=== PATIENT | female | born 1990 | race Hispanic/Latino ===

== ENCOUNTER 2020-12-06 06:21 | Outpatient (CLI) | payer SELFPAY ==
[~2020-12-06] VITALS: Ht 157.5 cm; Wt 95.5 kg
[~2020-12-06 06:21] MED LIST: DOCU-143 PO; FERR-65 PO; IBUP-1773 PO; OXYC1TAB11 PO; PREN-37 PO; PREN1COM PO
== END 2020-12-06 11:40 | disposition home or self-care (01) ==
LOC: PREOP 06:21
PROVIDERS: ATTEND Obstetrics & Gynecology
DX: Z01.818 Encounter for other preprocedural examination (principal)

== ENCOUNTER 2020-12-12 06:55 | Inpatient (IN) | payer OTHER ==
[~2020-12-12] VITALS: Ht 160 cm; Wt 95.9 kg
[2020-12-12] VITALS (12 sets, daily range): BP systolic 122–160; BP diastolic 64–91
[2020-12-12] MEDS: LACTATED RINGERS 1,000 ML IV PRN ×2 (07:25→08:30)
[2020-12-12] MEDS ORDERED: TETANUS,DIPTH,PERTUSS P/F (BOOSTRIX) 0.5 ML VIAL IM SCH (07:30)
[2020-12-12] MEDS ORDERED: ceFAZolin 2 GM IV Premixed 50 ML IV ONE (07:30)
[2020-12-12] MEDS ORDERED: MEASLES,MUMPS,RUBELLA 1 EA INJ SC SCH (07:30)
[2020-12-12] MEDS ORDERED: ONDANSETRON 4 MG/2 ML (SDV) Z0FRAN IVP PRN (07:30)
[2020-12-12 07:34] LABS: BASOPHILS # (AUTO) 0.1 10^3/uL (0.0-0.1); BASOPHILS % (AUTO) 1 % (0-10); EOSINOPHILS # (AUTO) 0.1 10^3/uL (0.0-0.3); EOSINOPHILS % (AUTO) 1 % (0-10); HEMATOCRIT 32 % (35-52); LYMPHOCYTES % (AUTO) 33 % (12-44); MEAN CORPUSCULAR HEMOGLOBIN 30 pg (25-34); MEAN CORPUSCULAR HGB CONC 34 g/dL (32-36); MEAN CORPUSCULAR VOLUME 89 fL (80-99); MEAN PLATELET VOLUME 10.7 fL (9.0-12.2); MONOCYTES # (AUTO) 0.6 10^3/uL (0.0-1.0); MONOCYTES % (AUTO) 9 % (0-12); NEUTROPHILS # (AUTO) 3.5 10^3/uL (1.8-7.8); NEUTROPHILS % (AUTO) 56 % (42-75); PLATELET COUNT 287 10^3/uL (130-400); WHITE BLOOD COUNT 6.3 10^3/uL (4.3-11.0)
--- NOTE | 2020-12-12 07:39 | History & Physical-OB ---
OB - Chief Complaint & HPI Date/Time Date of Admission: Date of Admission: Dec 12, 2020 at 06:55 Date seen by a Provider: Dec 12, 2020 Time Seen by a Provider: 07:35 Chief Complaint/History OB-Reason for Admission/Chief: Section Hx : 3 Hx Para: 2 Expected Date of Delivery: Dec 18, 2020 Gestational Age in Weeks: 39 Gestational Age in Days: 1 Indication for : desires repeat Admission Nurse Assessment Rev: Yes Allergies and Home Medications Allergies Coded Allergies: No Known Drug Allergies (Unverified , 09/28/16) Home Medications Vit/Iron Fumarate/FA 1 Each Tablet, 1 EACH PO DAILY, (Reported) Patient Home Medication List Home Medication List Reviewed: Yes OB - History Hx of Present Care: Yes Ultrasounds: Normal mid trimester US Obstetrical Complications: None Medical Complications: None Patient Past Medical History n/a Immunizations Date of Influenza Vaccine: Jun 27, 2020 OB - Admission Exam Physical Exam HEENT: NCAT Heart: Rhythm Normal Lungs: Clear Abdomen: Gravid Extremities: Normal Reflexes: Normal Heart Rate: 130's Accelerations: Accelerations Present Decelerations: No Decelerations Short Term Variability: Present Halfway Variability: Average (6-25) Contractions on Admission: 6-10 Minutes Apart Intensity: Mild Labs Laboratory Tests Test 12/12/20 07:20 Range/Units OB - Assessment/Plan/Diagnosis Assessment Assessment: section Admission Dx 30 yo @ 39.1 weeks Previous x 2 Admission Status: Inpatient Order (span 2 midnights) Reason for Inpatient Admission: Repeat Plan Plan: Section WAI EVANS DO Dec 12, 2020 07:38
[2020-12-12] MEDS ORDERED: fentaNYL INJ 100 MCG/2 ML AMP ONE (07:41)
[2020-12-12] MEDS ORDERED: ONDANSETRON 4 MG/2 ML (SDV) Z0FRAN ONE (07:41)
[2020-12-12] MEDS ORDERED: OXYTOCIN PRE-MIX DRIP 1,000 ML IV ONE (07:50)
[2020-12-12] MEDS ORDERED: BUPIVACAINE 0.25% 30 ML (SENSORCAINE) VIAL ONE (07:50)
[2020-12-12] MEDS ORDERED: METOCLOPRAMIDE INJ 10 MG/2 ML (REGLAN) IV ONE (08:00)
[2020-12-12] MEDS ORDERED: CITRIC ACID/SOB CIT (BICITRA) 30 ML UDC PO ONE (08:00)
[2020-12-12] MEDS ORDERED: FAMOTIDINE 20MG/2ML IV (PEPCID) IV ONE (08:00)
[2020-12-12] MEDS ORDERED: IBUP-844 PO (08:02)
[2020-12-12] MEDS ORDERED: ACHD5005 PO (08:02)
[2020-12-12] MEDS ORDERED: DCS100C PO (08:02)
--- NOTE | 2020-12-12 08:03 | Discharge Inst-Women's Service ---
Discharge Inst-Women's Serv Depart Medication/Instructions New, Converted or Re-Newed RX: RX on Chart Final Diagnosis POD 2 RLTCS Problems Reviewed?: Yes Consults/Follow Up Additional Follow Up: Yes Orders/Referrals Dr. Posey in 7-10 days, and Dr. Cole in 6 weeks Activity Activity: Activity as Tolerated Driving Instructions: No Driving for 1 Week NO SMOKING: NO SMOKING Nothing Inside Vagina: No Douching, No [place], No Tampons Diet Discharge Diet: No Restrictions Symptoms to Report to : Bleeding Excessive, Pain Increased, Fever Over 101 Degrees F, Vaginal Bleeding Increase, Questions/Concerns For Any Problems or Questions: Contact Your Physician Skin/Wound Care Infection Signs and Symptoms: Increased Redness, Foul Odor of Wound, Increased Drainage, Skin Itchy or Has a Rash, Increased Swelling, Temperature Above 101 F Operative Area Clean and Dry: Keep Incision Clean/Dry Stitches/Ольга/Dermabond: Dermabond, Care of Stitches Bathing Instructions: WAI Hatfield DO Dec 12, 2020 08:03
[2020-12-12] MEDS ORDERED: KETOROLAC 30 MG/ML VIAL ONE (08:54)
[2020-12-12] MEDS: HYDROcodone/APAP 5 MG/325 MG (LORTAB) TAB PO PRN ×2 (10:36→18:37)
[2020-12-12] MEDS: OXYTOCIN PRE-MIX DRIP 500 ML IV SCH ×2 (11:30→11:41)
[2020-12-12] MEDS: KETOROLAC 30 MG/ML VIAL IV SCH ×2 (15:00→21:15)
--- NOTE | 2020-12-12 15:38 | OPERATIVE REPORT ---
DATE OF SERVICE: PREOPERATIVE DIAGNOSES: 1. A 30-year-old G3, P2 at 39 weeks' gestation. 2. Previous section. POSTOPERATIVE DIAGNOSES: 1. A 30-year-old, P2 at 39 weeks' gestation. 2. Previous section. PROCEDURE PERFORMED: Repeat low transverse section. SURGEON: Wilbur Posey DO. ANESTHESIA: Spinal. ESTIMATED BLOOD LOSS: 400 mL. URINE OUTPUT: 175 mL clear at the end of the procedure. FLUIDS: 1500 mL lactated Ringer's solution. FINDINGS: A live female infant weighing 7 pounds 8 ounces, Apgars of 8 and 9. Grossly normal appearing uterus, bilateral fallopian tubes and ovaries. SPECIMEN SENT: None. INDICATIONS FOR PROCEDURE: This 30-year-old female was a consultation to me from the [facility] for repeat . The patient had had two prior cesareans. Risks of the procedure were discussed with the patient in detail and after all her questions were answered in the preoperative area, consent was obtained and the patient was taken to the operating room. OPERATIVE REPORT IN DETAIL: Once in the operating room, spinal analgesia was found to be adequate. She was placed in the supine position with leftward tilt, prepped and draped in a normal sterile fashion. Timeout was performed and anesthesia was tested. I then made a Pfannenstiel skin incision through the previously existing scar using a knife and carried down to the underlying fascia using Bovie cautery. The fascial incision extended laterally using Bovie cautery. Superior aspect of the fascial incision was then grasped with Matt clamps, tented up and dissected off any rectus muscles. The inferior aspect of fascial incision was then grasped with Matt clamps, tented up and dissected off the underlying rectus muscles. Rectus muscles were then dissected down the midline using Crockett scissors, which exposed the peritoneum, which I entered bluntly and extended using blunt traction. Wai ring retractor was placed in the peritoneal incision, which offered excellent lateral sidewall retraction. I then identified the lower uterine segment, which was found to be thinned out. I made a low transverse incision to the vesicouterine peritoneum and bluntly dissected off the lower uterine segment. I proceeded with myotomy until membranes were visualized, at which point I extended the uterine incision laterally and superiorly using bandage scissors. Amniotomy was then performed using Allis clamp. Clear fluid was noted. The infant was found in vertex presentation. With gentle fundal pressure, the 's head was elevated to the incision, where the nares and oropharynx were bulb suctioned. Anterior and posterior shoulders were delivered. The was then brought to the operative field, where the cord was slowly clamped and cut and infant was handed off to waiting nurses in attendance. Cord blood was collected, 3-vessel cord with intact placenta was delivered spontaneously thereafter. IV Pitocin was continued to facilitate uterine contraction. Uterine fundus became firm by manual massage. The uterus was then exteriorized and cleared of all endometrial clots and debris. I then proceeded with closing the uterine incision using 0 vicryl suture in a running locked fashion. Second layer of imbricating 0 Monocryl was placed. Excellent hemostasis was noted. I then placed the uterus back in the pelvis and copiously irrigated the pelvis using normal saline. There was no active bleeding noted from any of my dissection planes. I then placed Interceed antiadhesive over my low transverse incision and proceeded with closing the peritoneum and the rectus muscles in one layer using 3-0 Vicryl suture in an interrupted fashion. The fascia was reapproximated using 0 Vicryl suture in a running fashion. Subcutaneous tissue was reapproximated using 3-0 plain interrupted subcutaneous stitch and skin was reapproximated using 4-0 Monocryl running subcuticular. Dermabond was applied to the incision and sterile dressing with adhesive white tape. The patient tolerated the procedure well and sent to recovery area in a stable condition. Lap and sponge counts were correct at the end of the procedure. Instrument counts were correct as well. Two grams of Ancef were given preoperatively for infection prophylaxis. Job ID: [id number] DocumentID: [id number] Dictated Date: 12/12/2020 12:29:02 Global Marketing Specialist Date: 12/12/2020 15:37:35 Dictated By: DO JOSE MIJARES
[2020-12-12] MEDS: DOCUSATE SODIUM 100 MG (COLACE) CAP PO SCH ×2 (20:57→21:15)
[2020-12-12] MEDS: CATHETER FLUSH 10 ML SYR IV SCH (21:16)
[2020-12-13] MEDS: CATHETER FLUSH 10 ML SYR IV SCH ×2 (00:13→05:24)
[2020-12-13 00:45] VITALS: BP 141/74
[2020-12-13 05:23] LABS: BASOPHILS % (AUTO) 1 % (0-10); EOSINOPHILS # (AUTO) 0.1 10^3/uL (0.0-0.3); EOSINOPHILS % (AUTO) 1 % (0-10); HEMATOCRIT 27 % (35-52); HEMOGLOBIN 8.9 g/dL (11.5-16.0); LYMPHOCYTES # (AUTO) 1.4 10^3/uL (1.0-4.0); LYMPHOCYTES % (AUTO) 22 % (12-44); MEAN CORPUSCULAR HEMOGLOBIN 30 pg (25-34); MEAN CORPUSCULAR HGB CONC 33 g/dL (32-36); MEAN CORPUSCULAR VOLUME 89 fL (80-99); MEAN PLATELET VOLUME 10.3 fL (9.0-12.2); MONOCYTES # (AUTO) 0.6 10^3/uL (0.0-1.0); MONOCYTES % (AUTO) 10 % (0-12); NEUTROPHILS # (AUTO) 4.3 10^3/uL (1.8-7.8); NEUTROPHILS % (AUTO) 66 % (42-75); PLATELET COUNT 240 10^3/uL (130-400); WHITE BLOOD COUNT 6.5 10^3/uL (4.3-11.0)
[2020-12-13 05:24] VITALS: BP 136/81
[2020-12-13] MEDS: HYDROcodone/APAP 5 MG/325 MG (LORTAB) TAB PO PRN ×2 (05:24→16:50)
[2020-12-13] MEDS: KETOROLAC 30 MG/ML VIAL IV SCH ×2 (05:24→05:44)
[2020-12-13] MEDS: IBUPROFEN 600 MG (MOTRIN) TAB PO SCH ×3 (07:30→18:12)
--- NOTE | 2020-12-13 08:06 | Postpartum Progress Note ---
Note Note Day # 1 Subjective: Patient is without complaints. Ambulating, voiding. Tolerating a regular diet without nausea or vomiting. Normal lochia. Pain is well controlled with oral pain medications. Objective: Physical Exam: General - Alert and oriented, no apparent distress Abdomen - Soft, appropriately tender to palpation, non-distended, fundus firm at umbilicus Extremities - no edema, negative Shania's bilaterally Incision- c/d/i Assessment: POD 1 RLTCS Acute blood loss anemia Plan: Routine care. Encourage breast feeding. Encourage ambulation. Ferrous sulfate supplementation. Plan for discharge tomorrow Vitals - Labs Vital Signs - I&O Vital Signs Date Time Temp Pulse Resp B/P (MAP) Pulse Ox O2 Delivery O2 Flow Rate FiO2 12/13/20 05:24 37.1 92 18 136/81 (99) 95 Room Air 12/13/20 00:45 36.6 82 18 141/74 (96) 97 Room Air 12/12/20 21:15 36.8 80 20 134/70 (91) 96 Room Air 12/12/20 18:38 37.0 84 20 131/71 (91) 96 Room Air 12/12/20 16:05 36.9 81 20 131/70 (90) 96 Room Air 12/12/20 14:01 Room Air 12/12/20 11:45 37.2 78 20 128/70 (89) 95 Room Air 12/12/20 10:48 36.1 73 24 138/71 (93) 96 Room Air 12/12/20 10:13 Room Air 12/12/20 10:13 36 24 136/83 (100) 96 Room Air 12/12/20 10:00 Room Air 12/12/20 10:00 36.0 24 137/91 (106) 97 Room Air 12/12/20 09:45 36.6 24 128/86 (100) 97 Room Air 12/12/20 09:45 Room Air 12/12/20 09:30 36.6 22 125/75 (92) 99 Room Air 12/12/20 09:30 Room Air 12/12/20 09:15 36.3 18 122/64 (83) 99 Room Air 12/12/20 09:15 Room Air I & O 12/13/20 07:00 Intake Total 3050 ml Output Total 175 ml Balance 2875 ml Labs Laboratory Tests 12/13/20 04:58: White Blood Count 6.5, Red Blood Count 3.00L, Hemoglobin 8.9L, Hematocrit 27L, Mean Corpuscular Volume 89, Mean Corpuscular Hemoglobin 30, Mean Corpuscular Hemoglobin Concent 33, Red Cell Distribution Width 15.2H, Platelet Count 240, Mean Platelet Volume 10.3, Immature Granulocyte % (Auto) 1, Neutrophils (%) (Auto) 66, Lymphocytes (%) (Auto) 22, Monocytes (%) (Auto) 10, Eosinophils (%) (Auto) 1, Basophils (%) (Auto) 1, Neutrophils # (Auto) 4.3, Lymphocytes # (Auto) 1.4, Monocytes # (Auto) 0.6, Eosinophils # (Auto) 0.1, Basophils # (Auto) 0.0, Immature Granulocyte # (Auto) 0.1 WAI EVANS DO Dec 13, 2020 08:06
[2020-12-13 08:48] VITALS: BP 132/72
[2020-12-13] MEDS: DOCUSATE SODIUM 100 MG (COLACE) CAP PO SCH (08:53)
[2020-12-13 12:25] VITALS: BP 139/76
--- NOTE | 2020-12-13 13:31 | Anesthesia-Regional Post-Op ---
Regional Patient Condition Mental Status: Alert, Oriented x3 Circulation: Same as Pre-Op Headache: Absent Sensation: Full Recovery Motor Block: Absent Post Op Complications Complications None Follow Up Care/Instructions Patient Instructions None needed. Anesthesia/Patient Condition Patient is doing well, no complaints, stable vital signs, no apparent adverse anesthesia problems. MARIS VASQUEZ DO Dec 13, 2020 13:31
[2020-12-13 16:45] VITALS: BP 131/88
[2020-12-14 00:07] VITALS: BP 142/76
[2020-12-14] MEDS: DOCUSATE SODIUM 100 MG (COLACE) CAP PO SCH ×2 (00:08→11:39)
[2020-12-14] MEDS: IBUPROFEN 600 MG (MOTRIN) TAB PO SCH ×3 (00:08→11:39)
[2020-12-14 05:07] VITALS: BP 130/80
--- NOTE | 2020-12-14 09:02 | Postpartum Progress Note ---
Post Op Post-operative Day #2 s/p RLTCS patient of Dr. Posey. Subjective: Patient is without complaints. Ambulating, voiding after evans removed. Tolerating a regular diet without nausea or vomiting. Normal lochia. Pain is well controlled with oral pain medications. Passing flatus. Objective: Laboratory Tests Test 12/12/20 07:20 12/13/20 04:58 Range/Units White Blood Count 6.3 6.5 4.3-11.0 10^3/uL Red Blood Count 3.62 L 3.00 L 3.80-5.11 10^6/uL Hemoglobin 11.0 L 8.9 L 11.5-16.0 g/dL Hematocrit 32 L 27 L 35-52 % Mean Corpuscular Volume 89 89 80-99 fL Mean Corpuscular Hemoglobin 30 30 25-34 pg Mean Corpuscular Hemoglobin Concent 34 33 32-36 g/dL Red Cell Distribution Width 15.1 H 15.2 H 10.0-14.5 % Platelet Count 287 240 130-400 10^3/uL Mean Platelet Volume 10.7 10.3 9.0-12.2 fL Immature Granulocyte % (Auto) 1 1 % Neutrophils (%) (Auto) 56 66 42-75 % Lymphocytes (%) (Auto) 33 22 12-44 % Monocytes (%) (Auto) 9 10 0-12 % Eosinophils (%) (Auto) 1 1 0-10 % Basophils (%) (Auto) 1 1 0-10 % Neutrophils # (Auto) 3.5 4.3 1.8-7.8 10^3/uL Lymphocytes # (Auto) 2.0 1.4 1.0-4.0 10^3/uL Monocytes # (Auto) 0.6 0.6 0.0-1.0 10^3/uL Eosinophils # (Auto) 0.1 0.1 0.0-0.3 10^3/uL Basophils # (Auto) 0.1 0.0 0.0-0.1 10^3/uL Immature Granulocyte # (Auto) 0.1 0.1 0.0-0.1 10^3/uL 12/14/20 12/14/20 00:07 05:07 Temp 36.6 36.8 Pulse 88 84 Resp 16 16 B/P (MAP) 142/76 (98) 130/80 (97) Pulse Ox 96 96 O2 Delivery Room Air Room Air 12/14/20 00:00 Intake Total 1500 ml Balance 1500 ml Physical Exam: General - Alert and oriented, no apparent distress Abdomen - Soft, appropriately tender to palpation, non-distended, fundus firm at umbilicus Incision - clean, dry and intact; no erythema or induration, no drainage Extremities - no edema, negative Shania's bilaterally Assessment: 1. post-operative day # 2, status post RLTCS. Recovering well, hemodynamically stable Acute blood loss anemia Plan: Routine post-operative care. Encourage breast feeding. Encourage ambulation. VTE prophylaxis: SCDs. Ferrous sulfate supplementation. Plan for discharge today per Dr. Posey Vitals - Labs Vital Signs - I&O Vital Signs Date Time Temp Pulse Resp B/P (MAP) Pulse Ox O2 Delivery O2 Flow Rate FiO2 12/14/20 05:07 36.8 84 16 130/80 (97) 96 Room Air 12/14/20 00:07 36.6 88 16 142/76 (98) 96 Room Air 12/13/20 16:45 37.1 90 16 131/88 (102) 97 Room Air 12/13/20 12:25 37.2 80 18 139/76 (97) 96 Room Air I & O 12/14/20 07:00 Intake Total 2700 ml Output Total 175 ml Balance 2525 ml KIARRA PALMER DO Dec 14, 2020 09:02
[2020-12-14] MEDS ORDERED: FERR-84 PO (09:04)
[2020-12-14 11:38] VITALS: BP 136/80
[2020-12-14] MEDS: HYDROcodone/APAP 5 MG/325 MG (LORTAB) TAB PO PRN (15:05)
== END 2020-12-14 16:15 | disposition home or self-care (01) | DRG 787 ==
LOC: LDRP 06:55
PROVIDERS: ADMIT Obstetrics & Gynecology; ATTEND Obstetrics & Gynecology
PROC: 10D00Z1 Extraction of Products of Conception, Low, Open Approach (ICD-10-PCS; principal; 2020-12-12 07:57)
DX: O34.211 Maternal care for low transverse scar from previous cesarean delivery (principal); D62 Acute posthemorrhagic anemia; Z3A.39 39 weeks gestation of pregnancy; Z37.0 Single live birth; O90.81 Anemia of the puerperium
CPT/HCPCS: 36415; 85025; 86850; 86900; 86901; 90707; 94664

== ENCOUNTER 2021-03-04 18:33 | Day surgery (SDC) | payer MEDICAID, OTHER ==
[~2021-03-04] VITALS: Ht 154.9 cm; Wt 88.6 kg
[~2021-03-04 18:33] MED LIST changes: +ACHD5005 PO; +DCS100C PO; +FERR-84 PO; +IBUP-844 PO
[2021-03-04 18:57] LABS: BILIRUBIN,URINE NEGATIVE (NEGATIVE); CLARITY,URINE CLEAR; COLOR,URINE YELLOW; GLUCOSE, URINE (UA) NEGATIVE (NEGATIVE); KETONES,URINE NEGATIVE (NEGATIVE); LEUKOCYTE ESTERASE ,URINE NEGATIVE (NEGATIVE); NITRITE,URINE NEGATIVE (NEGATIVE); PH,URINE 8.5 (5-9); PROTEIN,URINE NEGATIVE (NEGATIVE)
--- NOTE | 2021-03-04 19:01 | ED Abdominal Pain ---
General Chief Complaint: Abdominal/GI Problems Stated Complaint: ABD PAIN Source of Information: Patient Exam Limitations: No Limitations History of Present Illness Date Seen by Provider: Mar 04, 2021 Time Seen by Provider: 18:50 Initial Comments This is a 30-year-old Lao-speaking female who presented to the ER with complaints of severe right upper quadrant abdominal pain. States pain started today and she went to the [facility] urgent care and was prescribed some medication, she is unsure of what she was given. States that pain returned and is more severe than earlier. Describes as sharp pain, rating 10 out of 10, constant, denies any alleviating or aggravating factors. States that she did have her daughter delivered via 3 months ago but is otherwise healthy with no prior surgeries. She denies alcohol, tobacco, drug use.Denies fever, chills, cough, shortness of breath, nausea, vomiting. Last menstrual period 2 days ago. Language line utilized. Allergies and Home Medications Allergies Coded Allergies: No Known Drug Allergies (Unverified , 09/28/16) Home Medications Docusate Sodium 100 Mg Capsule, 100 MG PO BID PRN for CONSTIPATION-1ST LINE Prescribed by: WAI EVANS on 12/12/20 0802 Ferrous Sulfate 325 Mg Tablet, 325 MG PO DAILY Prescribed by: KIARRA PALMER on 12/14/20 0904 Hydrocodone/Acetaminophen 1 Each Tablet, 1 EACH PO Q4H PRN for PAIN-MODERATE (5- 7) Prescribed by: JESUS KUNZ on 03/05/21 1225 Vit/Iron Fumarate/FA 1 Each Tablet, 1 EACH PO DAILY, (Reported) Patient Home Medication List Home Medication List Reviewed: Yes Review of Systems Review of Systems Constitutional: see HPI EENTM: No Symptoms Reported Respiratory: No Symptoms Reported Cardiovascular: No Symptoms Reported Gastrointestinal: See HPI Genitourinary: No Symptoms Reported Musculoskeletal: no symptoms reported Skin: no symptoms reported Psychiatric/Neurological: No Symptoms Reported Endocrine: No Symptoms Reported Hematologic/Lymphatic: No Symptoms Reported Past Xqsdlwk-Elypsh-Qyvdoy Hx Patient Social History Recent Hopitalizations: No Immunizations Up To Date Date of Influenza Vaccine: Jun 27, 2020 Seasonal Allergies Seasonal Allergies: No Past Medical History Surgeries: Yes (c/s x2) Respiratory: No Cardiac: No Neurological: No Genitourinary: No Gastrointestinal: No Musculoskeletal: No Endocrine: No HEENT: No Cancer: No Psychosocial: No Integumentary: No Blood Disorders: No Family Medical History Patient reports no known family medical history. Physical Exam Vital Signs Vital Signs - First Documented 03/04/21 19:00 Temp 37.1 Pulse 67 Resp 18 B/P (MAP) 145/98 (114) O2 Delivery Room Air Capillary Refill : Height/Weight/BMI Height: 5'5.00" Weight: 154lbs. 0.0oz. [id number]; 37.46 BMI Method: General Appearance: WD/WN, no apparent distress HEENT: PERRL/EOMI, normal ENT inspection, pharynx normal Neck: full range of motion, supple, normal inspection Respiratory: lungs clear, normal breath sounds, no respiratory distress Cardiovascular: regular rate, rhythm, no gallop, no murmur Gastrointestinal: normal bowel sounds, soft, other (+ oseguera ) Extremities: normal range of motion, normal inspection Back: normal inspection, no CVA tenderness Neurologic/Psychiatric: no motor/sensory deficits, alert, normal mood/affect, oriented x 3 Skin: normal color, warm/dry Progress/Results/Core Measures Results/Orders Lab Results Laboratory Tests Test 03/04/21 18:48 03/04/21 19:14 Range/Units Urine Color YELLOW Urine Clarity CLEAR Urine pH 8.5 5-9 Urine Specific Cornelius 1.015 L 1.016-1.022 Urine Protein NEGATIVE NEGATIVE Urine Glucose (UA) NEGATIVE NEGATIVE Urine Ketones NEGATIVE NEGATIVE Urine Nitrite NEGATIVE NEGATIVE Urine Bilirubin NEGATIVE NEGATIVE Urine Urobilinogen 0.2 < = 1.0 MG/DL Urine Leukocyte Esterase NEGATIVE NEGATIVE Urine RBC (Auto) TRACE-I NEGATIVE Urine RBC NONE /HPF Urine WBC NONE /HPF Urine Squamous Epithelial Cells 5-10 /HPF Urine Crystals NONE /LPF Urine Bacteria TRACE /HPF Urine Casts NONE /LPF Urine Mucus NEGATIVE /LPF Urine Culture Indicated NO White Blood Count 7.7 4.3-11.0 10^3/uL Red Blood Count 4.08 3.80-5.11 10^6/uL Hemoglobin 12.0 11.5-16.0 g/dL Hematocrit 36 35-52 % Mean Corpuscular Volume 88 80-99 fL Mean Corpuscular Hemoglobin 29 25-34 pg Mean Corpuscular Hemoglobin Concent 33 32-36 g/dL Red Cell Distribution Width 14.4 10.0-14.5 % Platelet Count 397 130-400 10^3/uL Mean Platelet Volume 9.1 9.0-12.2 fL Immature Granulocyte % (Auto) 0 % Neutrophils (%) (Auto) 64 42-75 % Lymphocytes (%) (Auto) 24 12-44 % Monocytes (%) (Auto) 9 0-12 % Eosinophils (%) (Auto) 2 0-10 % Basophils (%) (Auto) 1 0-10 % Neutrophils # (Auto) 4.9 1.8-7.8 10^3/uL Lymphocytes # (Auto) 1.8 1.0-4.0 10^3/uL Monocytes # (Auto) 0.7 0.0-1.0 10^3/uL Eosinophils # (Auto) 0.2 0.0-0.3 10^3/uL Basophils # (Auto) 0.0 0.0-0.1 10^3/uL Immature Granulocyte # (Auto) 0.0 0.0-0.1 10^3/uL Sodium Level 140 135-145 MMOL/L Potassium Level 3.7 3.6-5.0 MMOL/L Chloride Level 103 98-107 MMOL/L Carbon Dioxide Level 30 21-32 MMOL/L Anion Gap 7 5-14 MMOL/L Blood Urea Nitrogen 13 7-18 MG/DL Creatinine 0.84 0.60-1.30 MG/DL Estimat Glomerular Filtration Rate > 60 BUN/Creatinine Ratio 15 Glucose Level 103 70-105 MG/DL Calcium Level 9.3 8.5-10.1 MG/DL Corrected Calcium 9.1 8.5-10.1 MG/DL Total Bilirubin 0.4 0.1-1.0 MG/DL Aspartate Amino Transf (AST/SGOT) 50 H 5-34 U/L Alanine Aminotransferase (ALT/SGPT) 90 H 0-55 U/L Alkaline Phosphatase 87 40-136 U/L C-Reactive Protein High Sensitivity 0.57 H 0.00-0.50 MG/DL Total Protein 7.1 6.4-8.2 GM/DL Albumin 4.2 3.2-4.5 GM/DL Lipase 18 8-78 U/L Serum Test, Qualitative NEGATIVE NEGATIVE My Orders Orders - XIOMY PEREZ APRN Ua Culture If Indicated (03/04/21 18:35) Urine Bedside (03/04/21 18:35) Fentanyl Inj (Sublimaze Injection) (03/04/21 19:15) Cbc With Automated Diff (03/04/21 19:01) Comprehensive Metabolic Panel (03/04/21 19:01) Hs C Reactive Protein (03/04/21 19:01) Hcg,Qualitative Serum (03/04/21 19:01) Lipase (03/04/21 19:04) Ct Abdomen/Pelvis W (03/04/21 19:26) Dicyclomine Injection (Bentyl Injection) (03/04/21 19:45) Iohexol Injection (Omnipaque 350 Mg/Ml 1 (03/04/21 20:15) Received Contrast (Hold Metformin- Contr (03/04/21 20:15) Sodium Chloride Flush (Catheter Flush Sy (03/04/21 20:15) Ns (Ivpb) (Sodium Chloride 0.9% Ivpb Bag (03/04/21 20:15) Hydromorphone Injection (Dilaudid Inject (03/04/21 21:15) Medications Given in ED Vital Signs/I&O 03/04/21 19:00 Temp 37.1 Pulse 67 Resp 18 B/P (MAP) 145/98 (114) O2 Delivery Room Air Diagnostic Imaging Diagonstic Imaging: CT Plain Films/CT/US/NM/MRI: abdomen, pelvis Comments [facility] [place] NAME: ANICETO [facility] REC#: [id number] PT STATUS: REG ER : 1990 PHYSICIAN: XIOMY PEREZ IMPROVEMENT ENGINEER ADMIT DATE: 03/04/21/ER Signed Date of Exam:03/04/21 CT ABDOMEN/PELVIS W EXAMINATION: CT abdomen and pelvis with intravenous contrast. TECHNIQUE: Multiple contiguous axial images were obtained through the abdomen and pelvis after the uneventful administration of intravenous contrast. All CT scans use one or more of the following dose optimizing techniques: automated exposure control, MA and/or KvP adjustment based on patient size and exam type or iterative reconstruction. HISTORY: Right upper quadrant pain COMPARISON: None available. FINDINGS: Limited views of the lower thorax are unremarkable. Liver is steatotic. No focal liver lesions are seen. There is no biliary ductal dilation. There are gallstones and the gallbladder wall is edematous with a small amount of surrounding stranding. Findings concerning for cholecystitis. Pancreas is normal. Spleen is normal. Adrenal glands are normal. The kidneys are normal. There is no hydronephrosis. Urinary bladder is normal. Uterus and adnexa are normal for age. Visualized bowel is normal in caliber without obstruction or inflammation. The appendix is normal. No free fluid or air. No abdominal or pelvic lymphadenopathy. Aorta is normal in caliber without aneurysm. There are no suspicious osseus lesions. IMPRESSION: 1. Gallstones with gallbladder wall thickening and small amount of adjacent stranding. Findings consistent with acute cholecystitis. Dictated by: Dictated on workstation # [id number] Dict: 03/04/212035 Trans: 03/04/212043 [facility] [id number] Interpreted by: KENNETH COHEN MD Electronically signed by: KENNETH COHEN MD 03/04/212043 Reviewed: Reviewed by Me Departure Communication (Admissions) Time/Spoke to Admitting Phy: 20:[address] Kunz, Requested patient be admitted and to place on surgical schedule for lap cholecystectomy in the a.m. Orders given to initiate Zosyn and pain management. Impression Primary Impression: Acute cholecystitis Disposition: ADMITTED INPATIENT Condition: Stable Admissions Decision to Admit Reason: Admit from ER (General) Decision to Admit/Date: Mar 04, 2021 Time/Decision to Admit Time: 20:20 Departure-Patient Inst. Decision time for Depature: 21:14 Referrals: ANDREW COREY DO (PCP/Family) Primary Care Physician Scripts Hydrocodone/Acetaminophen (Hydrocodone-Acetamin 5-325 mg) 1 Each Tablet 1 EACH PO Q4H PRN for PAIN-MODERATE (5-7), #30 TAB Prov: JESUS KUNZ DO 03/05/21 XIOMY PEREZ IMPROVEMENT ENGINEER Mar 04, 2021 19:01
[2021-03-04 19:05] LABS: BACTERIA,URINE TRACE /HPF
[2021-03-04] MEDS ORDERED: fentaNYL INJ 100 MCG/2 ML AMP IVP ONE (19:15)
[2021-03-04 19:20] LABS: BASOPHILS % (AUTO) 1 % (0-10); EOSINOPHILS # (AUTO) 0.2 10^3/uL (0.0-0.3); EOSINOPHILS % (AUTO) 2 % (0-10); HEMATOCRIT 36 % (35-52); LYMPHOCYTES # (AUTO) 1.8 10^3/uL (1.0-4.0); LYMPHOCYTES % (AUTO) 24 % (12-44); MEAN CORPUSCULAR HEMOGLOBIN 29 pg (25-34); MEAN CORPUSCULAR HGB CONC 33 g/dL (32-36); MEAN CORPUSCULAR VOLUME 88 fL (80-99); MEAN PLATELET VOLUME 9.1 fL (9.0-12.2); MONOCYTES # (AUTO) 0.7 10^3/uL (0.0-1.0); MONOCYTES % (AUTO) 9 % (0-12); NEUTROPHILS # (AUTO) 4.9 10^3/uL (1.8-7.8); NEUTROPHILS % (AUTO) 64 % (42-75); PLATELET COUNT 397 10^3/uL (130-400); WHITE BLOOD COUNT 7.7 10^3/uL (4.3-11.0)
[2021-03-04] MEDS ORDERED: DICYCLOMINE 10 MG/ML (BENTYL) 2 ML AMP IM ONE (19:45)
[2021-03-04 19:57] LABS: ALANINE AMINOTRANSFERASE 90 U/L (0-55); ALBUMIN 4.2 GM/DL (3.2-4.5); ALKALINE PHOSPHATASE 87 U/L (40-136); BILIRUBIN,TOTAL 0.4 MG/DL (0.1-1.0); BUN/CREATININE RATIO 15; CALCIUM 9.3 MG/DL (8.5-10.1); CARBON DIOXIDE 30 MMOL/L (21-32); CHLORIDE 103 MMOL/L (98-107); CREATININE SERUM 0.84 MG/DL (0.60-1.30); GFR ESTIMATED > 60; GLUCOSE 103 MG/DL (70-105); LIPASE 18 U/L (8-78); POTASSIUM 3.7 MMOL/L (3.6-5.0); SODIUM 140 MMOL/L (135-145); TOTAL PROTEIN 7.1 GM/DL (6.4-8.2)
[2021-03-04] MEDS ORDERED: HOLD METFORMIN - RECEIVED CONTRAST 20 ML VIAL IV SCH (20:15)
[2021-03-04] MEDS ORDERED: NS 100 ML (IVPB) BAG IV ONE (20:15)
[2021-03-04] MEDS ORDERED: CATHETER FLUSH 10 ML SYR IV PRN (20:15)
[2021-03-04] MEDS ORDERED: IOHEXOL 350 MG/ML 100 ML (OMNIPAQUE 350) VIAL IV ONE (20:15)
--- NOTE | 2021-03-04 20:40 | Diagnostic Imaging Report ---
EXAMINATION: CT abdomen and pelvis with intravenous contrast. TECHNIQUE: Multiple contiguous axial images were obtained through the abdomen and pelvis after the uneventful administration of intravenous contrast. All CT scans use one or more of the following dose optimizing techniques: automated exposure control, MA and/or KvP adjustment based on patient size and exam type or iterative reconstruction. HISTORY: Right upper quadrant pain COMPARISON: None available. FINDINGS: Limited views of the lower thorax are unremarkable. Liver is steatotic. No focal liver lesions are seen. There is no biliary ductal dilation. There are gallstones and the gallbladder wall is edematous with a small amount of surrounding stranding. Findings concerning for cholecystitis. Pancreas is normal. Spleen is normal. Adrenal glands are normal. The kidneys are normal. There is no hydronephrosis. Urinary bladder is normal. Uterus and adnexa are normal for age. Visualized bowel is normal in caliber without obstruction or inflammation. The appendix is normal. No free fluid or air. No abdominal or pelvic lymphadenopathy. Aorta is normal in caliber without aneurysm. There are no suspicious osseus lesions. IMPRESSION: 1. Gallstones with gallbladder wall thickening and small amount of adjacent stranding. Findings consistent with acute cholecystitis. Dictated by: Dictated on workstation # [id number]
[2021-03-04] MEDS ORDERED: HYDROmorphone 2 MG/ML VIAL (DILAUDID) ONE (20:56)
[2021-03-04] MEDS ORDERED: HYDROmorphone 2 MG/ML VIAL (DILAUDID) IV ONE (21:15)
[2021-03-04 22:00] VITALS: BP 164/95
[2021-03-04] MEDS ORDERED: ONDANSETRON 4 MG/2 ML (SDV) Z0FRAN IVP PRN (22:30)
[2021-03-04 22:42] VITALS: BP 164/95
[2021-03-04] MEDS ORDERED: HYDROmorphone 2 MG/ML VIAL (DILAUDID) IV PRN (22:45)
[2021-03-04] MEDS ORDERED: RT-ALBUTEROL/IPRATROPIUM 3 ML (DUONEB) VIAL INH PRN (22:45)
[2021-03-04] MEDS: fentaNYL INJ 100 MCG/2 ML AMP IVP PRN (22:51)
[2021-03-04] MEDS: LACTATED RINGERS 1,000 ML IV SCH (22:51)
[2021-03-04] MEDS ORDERED: PIPERACILLIN/TAZO 4.5 GM/NS 100 ML IV ONE ×2 (23:00)
[2021-03-05] VITALS (11 sets, daily range): BP systolic 111–168; BP diastolic 54–84
[2021-03-05] MEDS: fentaNYL INJ 100 MCG/2 ML AMP IVP PRN ×2 (03:58→09:05)
[2021-03-05] MEDS ORDERED: PIPERACILLIN/TAZO 4.5 GM/NS 100 ML IV SCH ×2 (05:00)
[2021-03-05 05:30] LABS: BASOPHILS # (AUTO) 0.1 10^3/uL (0.0-0.1); BASOPHILS % (AUTO) 1 % (0-10); EOSINOPHILS % (AUTO) 0 % (0-10); HEMATOCRIT 36 % (35-52); HEMOGLOBIN 12.1 g/dL (11.5-16.0); LYMPHOCYTES # (AUTO) 1.7 10^3/uL (1.0-4.0); LYMPHOCYTES % (AUTO) 16 % (12-44); MEAN CORPUSCULAR HEMOGLOBIN 30 pg (25-34); MEAN CORPUSCULAR HGB CONC 34 g/dL (32-36); MEAN CORPUSCULAR VOLUME 88 fL (80-99); MEAN PLATELET VOLUME 9.7 fL (9.0-12.2); MONOCYTES # (AUTO) 0.6 10^3/uL (0.0-1.0); MONOCYTES % (AUTO) 6 % (0-12); NEUTROPHILS # (AUTO) 8.3 10^3/uL (1.8-7.8); NEUTROPHILS % (AUTO) 77 % (42-75); PLATELET COUNT 393 10^3/uL (130-400); WHITE BLOOD COUNT 10.8 10^3/uL (4.3-11.0)
[2021-03-05 05:49] LABS: CHLORIDE 103 MMOL/L (98-107); POTASSIUM 3.8 MMOL/L (3.6-5.0); SODIUM 138 MMOL/L (135-145)
[2021-03-05 05:51] LABS: GLUCOSE 119 MG/DL (70-105)
[2021-03-05 05:53] LABS: CARBON DIOXIDE 23 MMOL/L (21-32)
[2021-03-05 05:55] LABS: CREATININE SERUM 0.67 MG/DL (0.60-1.30); GFR ESTIMATED > 60
[2021-03-05 05:56] LABS: BUN/CREATININE RATIO 16
[2021-03-05] MEDS ORDERED: LACTATED RINGERS 1,000 ML IV PRN (07:30)
--- NOTE | 2021-03-05 08:20 | Consultation - Surgery ---
History of Present Illness History of Present Illness Patient Consulted On(onofre/time) 03/05/21 08:14 Date Seen by Provider: Mar 05, 2021 Time Seen by Provider: 08:14 History of Present Illness CC: ruq abd pain. Patient is a 30 year old female with ruq abd pain 3 days. 1st day had and went away. Then pain came back and has not gone away. Pain continuous. Sharp pain. Radiate around right rib cage. Pain is moderate to severe. Pain medication has helped. Nothing she knows of makes worse. With pain feels like at times it is harder to breath. Had ct scan showing gallstones and finding consistent with cholecystitis. Allergies and Home Medications Allergies Coded Allergies: No Known Drug Allergies (Unverified , 09/28/16) Home Medications Docusate Sodium 100 Mg Capsule, 100 MG PO BID PRN for CONSTIPATION-1ST LINE Prescribed by: WAI EVANS on 12/12/20 0802 Ferrous Sulfate 325 Mg Tablet, 325 MG PO DAILY Prescribed by: KIARRA PALMER on 12/14/20 0904 Hydrocodone Bit/Acetaminophen 1 Tab Tab, 1-2 EA PO Q6HR PRN for PAIN-MODERATE (5-7) Prescribed by: WAI EVANS on 12/12/20 0802 Ibuprofen 600 Mg Tablet, 600 MG PO Q6H Prescribed by: WAI EVANS on 12/12/20 0802 Vit/Iron Fumarate/FA 1 Each Tablet, 1 EACH PO DAILY, (Reported) Patient Home Medication List Home Medication List Reviewed: Yes Past Afosegq-Xebhxk-Llusxg Hx Patient Social History Smoking Status: Never a Smoker 2nd Hand Smoke Exposure: No Recent Hopitalizations: No Alcohol Use?: No Have you traveled recently?: No Immunizations Up To Date Date of Influenza Vaccine: Jun 27, 2020 Seasonal Allergies Seasonal Allergies: No Surgeries History of Surgeries: Yes (c/s x2) Respiratory History of Respiratory Disorde: No Cardiovascular History of Cardiac Disorders: No Neurological History of Neurological Disord: No Genitourinary History of Genitourinary Disor: No Gastrointestinal History of Gastrointestinal Di: No Musculoskeletal History of Musculoskeletal Dis: No Endocrine History of Endocrine Disorders: No HEENT History of HEENT Disorders: No Cancer History of Cancer: No Psychosocial History of Psychiatric Problem: No Integumentary History of Skin or Integumenta: No Blood Transfusions History of Blood Disorders: No Reviewed Nursing Assessment Reviewed/Agree w Nursing PMH: Yes Family Medical History Significant Family History: No Pertinent Family Hx Family Medial History: Patient reports no known family medical history. Review of Systems-General Constitutional: No chills, No diaphoresis EENTM: No blurred vision, No double vision Respiratory: No cough; short of breath (due to pain) Cardiovascular: No chest pain, No palpitations Gastrointestinal: abdominal pain (RUQ) Genitourinary: No decreased output, No discharge Musculoskeletal: No back pain, No joint pain Skin: No change in color, No change in hair/nails Psychiatric/Neurological: Denies Anxiety, Denies Depressed, Denies Emotional Problems All Other Systems Reviewed Negative Unless Noted: Yes (Negative excepted noted.) Physical Exam-General Problems Physical Exam Vital Signs Vital Signs - First Documented 03/04/21 03/04/21 03/04/21 19:00 21:49 22:42 Temp 37.1 Pulse 67 Resp 18 B/P (MAP) 145/98 (114) Pulse Ox 98 O2 Delivery Room Air FiO2 21 Capillary Refill : Less Than 3 Seconds General Appearance: WD/WN, no apparent distress HEENT: PERRL/EOMI, normal ENT inspection Neck: non-tender, supple, normal inspection Respiratory: chest non-tender, no respiratory distress, no accessory muscle use Cardiovascular: regular rate, rhythm, no JVD Gastrointestinal: soft, no organomegaly, tenderness (ruq) Rectal: deferred Back: no CVA tenderness, no vertebral tenderness Extremities: non-tender, normal inspection, no pedal edema Neurologic/Psychiatric: alert, normal mood/affect, oriented x 3 Skin: normal color, warm/dry Lymphatic: no adenopathy Data Review Labs Laboratory Tests 03/04/21 18:48: Urine Color YELLOW, Urine Clarity CLEAR, Urine pH 8.5, Urine Specific [place] 1.015L, Urine Protein NEGATIVE, Urine Glucose (UA) NEGATIVE, Urine Ketones NEGATIVE, Urine Nitrite NEGATIVE, Urine Bilirubin NEGATIVE, Urine Urobilinogen 0.2, Urine Leukocyte Esterase NEGATIVE, Urine RBC (Auto) TRACE-I, Urine RBC NONE, Urine WBC NONE, Urine Squamous Epithelial Cells 5-10, Urine Crystals NONE, Urine Bacteria TRACE, Urine Casts NONE, Urine Mucus NEGATIVE, Urine Culture Indicated NO 03/04/21 19:14: White Blood Count 7.7, Red Blood Count 4.08, Hemoglobin 12.0, Hematocrit 36, Mean Corpuscular Volume 88, Mean Corpuscular Hemoglobin 29, Mean Corpuscular Hemoglobin Concent 33, Red Cell Distribution Width 14.4, Platelet Count 397, Mean Platelet Volume 9.1, Immature Granulocyte % (Auto) 0, Neutrophils (%) (Auto) 64, Lymphocytes (%) (Auto) 24, Monocytes (%) (Auto) 9, Eosinophils (%) (Auto) 2, Basophils (%) (Auto) 1, Neutrophils # (Auto) 4.9, Lymphocytes # (Auto) 1.8, Monocytes # (Auto) 0.7, Eosinophils # (Auto) 0.2, Basophils # (Auto) 0.0, Immature Granulocyte # (Auto) 0.0, Sodium Level 140, Potassium Level 3.7, Chloride Level 103, Carbon Dioxide Level 30, Anion Gap 7, Blood Urea Nitrogen 13, Creatinine 0.84, Estimat Glomerular Filtration Rate > 60, BUN/Creatinine Ratio 15, Glucose Level 103, Calcium Level 9.3, Corrected Calcium 9.1, Total Bilirubin 0.4, Aspartate Amino Transf (AST/SGOT) 50H, Alanine Aminotransferase (ALT/SGPT) 90H, Alkaline Phosphatase 87, C-Reactive Protein High Sensitivity 0.57H, Total Protein 7.1, Albumin 4.2, Lipase 18, Serum Test, Qualitative NEGATIVE 03/05/21 05:20: White Blood Count 10.8, Red Blood Count 4.09, Hemoglobin 12.1, Hematocrit 36, Mean Corpuscular Volume 88, Mean Corpuscular Hemoglobin 30, Mean Corpuscular Hemoglobin Concent 34, Red Cell Distribution Width 14.3, Platelet Count 393, Mean Platelet Volume 9.7, Immature Granulocyte % (Auto) 0, Neutrophils (%) (Auto) 77H, Lymphocytes (%) (Auto) 16, Monocytes (%) (Auto) 6, Eosinophils (%) (Auto) 0, Basophils (%) (Auto) 1, Neutrophils # (Auto) 8.3H, Lymphocytes # (Auto) 1.7, Monocytes # (Auto) 0.6, Eosinophils # (Auto) 0.0, Basophils # (Auto) 0.1, Immature Granulocyte # (Auto) 0.0, Sodium Level 138, Potassium Level 3.8, Chloride Level 103, Carbon Dioxide Level 23, Anion Gap 12, Blood Urea Nitrogen 11, Creatinine 0.67, Estimat Glomerular Filtration Rate > 60, BUN/Creatinine Ratio 16, Glucose Level 119H, Calcium Level 9.0 Assessment/Plan Assessment/Plan Assessment/Plan ruq abd pain cholelithiasis c acute cholecystitis discussed risks and benefits of laparoscopic cholecystectomy c ioc all other indicated procedures she understands and wishes to proceed On abx NPO To OR JESUS KUNZ DO Mar 05, 2021 08:20
[2021-03-05] MEDS ORDERED: PANTOPRAZOLE 40 MG (PROTONIX) VIAL IV SCH (09:00)
[2021-03-05] MEDS ORDERED: LIDOCAINE/EPI 1%-1:100,000 (XYLOCAINE) 20ML ONE (09:50)
[2021-03-05] MEDS ORDERED: IOPAMIDOL 61% 30 ML (ISOVUE 300) VIAL ONE (09:50)
[2021-03-05] MEDS ORDERED: MIDAZOLAM 2 MG/2 ML (VERSED) VIAL ONE (10:55)
[2021-03-05] MEDS ORDERED: fentaNYL INJ 100 MCG/2 ML AMP ONE (10:55)
[2021-03-05] MEDS: LACTATED RINGERS 1,000 ML IV SCH (11:58)
[2021-03-05] MEDS ORDERED: ONDANSETRON 4 MG/2 ML (SDV) Z0FRAN ONE (12:03)
[2021-03-05] MEDS ORDERED: ROCURONIUM 10 MG/ML 5 ML SYRINGE IV ONE (12:03)
[2021-03-05] MEDS ORDERED: SEVOFLURANE (ULTANE) 15 ML INHAL SOLN ONE ×7 (12:03→12:13)
[2021-03-05] MEDS ORDERED: proPOfol 200 MG/20 ML (DIPRIVAN) VIAL IV ONE (12:03)
[2021-03-05] MEDS ORDERED: LIDOCAINE PF 2% 5 ML (XYLOCAINE) VIAL ONE (12:03)
[2021-03-05] MEDS ORDERED: GLYCOPYRROLATE 0.2 MG/ML (ROBINUL) 2 ML VIAL ONE (12:03)
[2021-03-05] MEDS ORDERED: NEOSTIGMINE 3 MG/3 ML VIAL ONE (12:03)
--- NOTE | 2021-03-05 12:22 | Progress Note-Post Operative ---
Post-Operative Progess Note Surgeon (s)/Corn Husker (s) Surgeon JESUS KUNZ DO Corn Husker: DR. Morejon to assist in retraction dissection and closure. Pre-Operative Diagnosis acute cholecystitis, cholelithiasis Post-Operative Diagnosis same Procedure & Operative Findings Date of Procedure 03/05/21 Procedure Performed/Findings PROCEDURE: Laparoscopic cholecystectomy with intraoperative cholangiogram. COMPLICATIONS: None. PROCEDURE: The patient was taken to the operating suite and was prepped and draped in sterile fashion. A surgical pause was performed. Just superior to the umbilicus, a 12 mm incision was made. Dissection was taken down to the fascia, which was then scored and grasped with a Matt and the abdomen was then entered. A 0 Vicryl suture was placed in a [id number] fashion and a García trocar was placed and secured. Pneumoperitoneum was achieved. A 5mm trochar place in the subxyphoid and 2 in the right upper quadrant. The gallbladder was distended with adhesion and significant fluid around gallbladder wall. It was then grasped and elevated Decompressed it. The cystic duct, and cystic artery were then dissected out. Clip was placed on the distal portion of the cystic duct which was then partially transected. An arrow catheter was inserted into the duct. The cholangiogram was then performed. No filing defects and contrast made its way into the duodenum. Catheter removed. Clips were placed on proximal portion of the cystic duct and then the duct was then transected. Clips were placed along the proximal and distal portion of the cystic artery which was then transected. Hook cautery was used to dissect the gallbladder from the gallbladder fossa achieving hemostasis and surgicel was placed. The gallbladder was placed in an Endobag and removed through the 12 mm trocar site. The abdomen was then reinspected. Copious amounts of irrigation were used to irrigate the abdomen and there were no signs of active bleeding. Hemostasis had been achieved. The 12 mm fascial defect was then closed with 0 Vicryl suture that had been placed in a keucxz-ry-xhscu fashion. The abdomen was then desufflated, the trocars were removed. The abdomen was then washed and dried. The skin was then closed using 4-0 Monocryl in a subcuticular fashion. The abdomen was washed and dried and Skin Affix was place over incisions. Patient tolerated the procedure well without any complications and was taken to the recovery room in stable condition. Anesthesia Type general Estimated Blood Loss Estimated blood loss (mL): minimal Specimens/Packing Specimens Removed gallbladder Packing: surgicel JESUS KUNZ DO Mar 05, 2021 12:22
[2021-03-05] MEDS ORDERED: ACHD5005 PO (12:24)
--- NOTE | 2021-03-05 12:26 | Discharge Inst-Simple/Standard ---
Discharge Inst-Standard Discharge Medications New, Converted or Re-Newed RX: Transmitted to Pharmacy Patient Instructions/Follow Up Plan of Care/Instructions/FU: 2-3 weeks Josh Activity as Tolerated: No Discharge Diet: Regular Diet Other Inst to Patient Follow up Appt: Make appointment for 2-3 weeks. Instructions: No lifting greater than 10 pounds. No strenuous activity. May shower in 24 hours, no tub bath or soaking. Use incentive spirometer at home as directed. No Smoking Skin/Wound Care: You have special glue over incision, it will fall off on it's own. Symptoms to Report: Appetite Changes, Extremity Discoloration, Numbness/Tingling, Swelling Increased, Bleeding Excessive, Eyesight Changes, Pain Increased, Urine Color Change, Constipation(Persistent), Fever over 101 degree F, Pain/Pressure in chest, Urinating Difficulty, Cough Up/Vomit Blood, Heart Beat Irreg/Pounding, Pain/Pressure in jaw, Vaginal Bleeding Increase, Cramps in feet or legs, Lightheadedness, Pain/Pressure in shoulder, Diarrhea(Persistent), Memory Changes Suddenly, Questions/Concerns, Weight gain consecutive days, Dizziness/Fainting, Nausea/Vomiting, Shortness of Breath, Weight gain over 2 pounds. If eyes or skin turn yellow notify physician. If questions or concerns contact your physician Or seek help at emergency department. JESUS KUNZ DO Mar 05, 2021 12:26
--- NOTE | 2021-03-05 12:33 | Diagnostic Imaging Report ---
EXAMINATION: Fluoroscopy at 11:46 AM. INDICATION: Abdominal pain. 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 11.9 seconds of fluoroscopy time was utilized. 55 spot images of the right upper quadrant were obtained. FINDINGS: There has been opacification of the common bile duct via a cystic duct catheter. The common bile duct does not appear to be dilated and there is no defect within the duct to suggest a retained calculus. The contrast is seen extending into the small bowel. There was some extravasation of the contrast as well. IMPRESSION: Fluoroscopic assistance was provided for Dr. Moreno. Dictated by: Dictated on workstation # [id number]
--- NOTE | 2021-03-05 12:44 | Anesthesia-General Post-Op ---
General Patient Condition Mental Status/LOC: Same as Preop Cardiovascular: Satisfactory Nausea/Vomiting: Absent Respiratory: Satisfactory Pain: Controlled Complications: Absent Post Op Complications Complications None Follow Up Care/Instructions Patient Instructions None needed. Anesthesia/Patient Condition Patient Condition Patient is doing well, no complaints, stable vital signs, no apparent adverse anesthesia problems. No complications reported per nursing. GHISLAINE BRANCH CRNA Mar 05, 2021 12:44
[2021-03-05] MEDS ORDERED: ONDANSETRON 4 MG/2 ML (SDV) Z0FRAN IVP PRN (12:45)
[2021-03-05] MEDS ORDERED: morphine INJ 10 MG/ML 1ML (SYR OR VIAL) IVP ONE (12:45)
== END 2021-03-05 15:30 | disposition home or self-care (01) ==
LOC: EDUNIT# 18:33 → ER 18:34 → 4TH 21:09 → SDC 21:09 → 4TH 21:09 → UNDOADMOB 21:09 → SDC 03-05 15:30 → UNDODISOB 03-05 15:30
PROVIDERS: ATTEND Surgery
DX: K80.00 Calculus of gallbladder with acute cholecystitis without obstruction (principal); Z79.899 Other long term (current) drug therapy; Z79.891 Long term (current) use of opiate analgesic
CPT/HCPCS: 36415; 74177; 76000; 80048; 80053; 81000; 83690; 84703; 85025; 86141; 87081; 88304; 96372; 96374; 96375